=== PATIENT | male | born 1985 | race Asian ===

== ENCOUNTER 2017-07-26 18:09 | Emergency (ER) | payer OTHER ==
[~2017-07-26] VITALS: Ht 182.9 cm; Wt 68.0 kg
[2017-07-26 18:14] VITALS: BP 123/71; TEMP 97.9
== END 2017-07-26 18:30 | disposition home or self-care (01) ==
LOC: ED 18:09
DX: M79.672 Pain in left foot (principal)
CPT/HCPCS: 99281